=== PATIENT | female | born 1965 | race Caucasian/White ===

== ENCOUNTER 2021-03-28 12:11 | Emergency (ER) | payer OTHER ==
[~2021-03-28] VITALS: Ht 154.9 cm; Wt 80.7 kg
== END 2021-03-28 15:38 | disposition home or self-care (01) ==
LOC: ER1 12:11
DX: U07.1 COVID-19 (principal); Z23 Encounter for immunization; E03.9 Hypothyroidism, unspecified; Z88.8 Allergy status to other drugs, medicaments and biological substances
CPT/HCPCS: 99283; M0245